=== PATIENT | female | born 1985 | race Caucasian/White ===

== ENCOUNTER 2017-05-15 19:51 | Emergency (ER) | payer OTHER ==
[~2017-05-15 19:51] MED LIST: MOT800 PO
[2017-05-15 19:59] VITALS: BP 129/86
== END 2017-05-15 20:55 | disposition home or self-care (01) ==
LOC: ED 19:51
DX: G90.59 Complex regional pain syndrome I of other specified site (principal)

== ENCOUNTER 2017-09-08 11:35 | Inpatient (IN) | payer OTHER ==
[~2017-09-08] VITALS: Ht 154.9 cm; Wt 87.6 kg
[2017-09-08 11:54] VITALS: Ht 154.9 cm; Wt 87.6 kg
[2017-09-08 13:17] LABS: UA SPECIFIC GRAVITY 1.025 (1.005-1.035); microscopic required? YES; urine erythrocyte 3+ (NEGATIVE)
[2017-09-08 14:29] LABS: PLATELET COUNT 177 x10^3mcL (130-400); RED CELL DISTRIBUTION WIDTH 13.3 % (11.5-14.5)
[2017-09-08 14:31] LABS: BASOPHIL % 0 % (0-2)
[2017-09-08 14:43] LABS: CALCIUM 9.1 mg/dL (8.5-10.1); CARBON DIOXIDE 23.6 mmol/L (21-32); CHLORIDE SERUM 106 mmol/L (98-107); CREATININE SERUM 0.6 mg/dL (0.6-1.0); GFR1 > 60 mL/min; GLUCOSE SERUM 90 mg/dL (74-106); SODIUM SERUM 139 mmol/L (136-145)
[2017-09-08 14:48] LABS: ALBUMIN 3.8 g/dL (3.4-5.0); ALKALINE PHOSPHATASE 75 U/L (46-116); ALT/SGPT 26 U/L (14-59); AST/SGOT 13 U/L (15-37); BILIRUBIN TOTAL 0.4 mg/dL (0.20-1.00); TOTAL PROTEIN, SERUM 7.7 g/dL (6.4-8.2)
[2017-09-08 15:25] LABS: CHOLESTEROL/HDL RATIO 2.9
[2017-09-08 15:25] LABS: AMPHETAMINE QUAL UR NONE DETECTED (NEG <=1000)
[2017-09-08 15:30] VITALS: BP 99/57
[2017-09-08 15:31] LABS: T3 TOTAL 0.94 ng/mL
[2017-09-08 15:33] LABS: FREE T4 1.11 ng/dL (0.76-1.46); FREE THYROXINE INDEX 2.7 ug/dL (1.4-4.5); T4(THYROXINE) 7.8 ug/dL (4.7-13.3)
[2017-09-08 18:15] VITALS: BP 102/54
[2017-09-08 20:47] VITALS: BP 102/52
[2017-09-09 05:18] VITALS: BP 101/54
[2017-09-09 07:07] LABS: CALCIUM 8.8 mg/dL (8.5-10.1); CARBON DIOXIDE 25.7 mmol/L (21-32); CHLORIDE SERUM 109 mmol/L (98-107); CREATININE SERUM 0.6 mg/dL (0.6-1.0); GFR1 > 60 mL/min; GLUCOSE SERUM 138 mg/dL (74-106); PHOSPHOROUS 3.2 mg/dL (2.5-4.9); POTASSIUM SERUM 4.9 mmol/L (3.5-5.1); SODIUM SERUM 140 mmol/L (136-145)
[2017-09-09 07:58] LABS: PLATELET COUNT 161 x10^3mcL (130-400); RED CELL DISTRIBUTION WIDTH 13.1 % (11.5-14.5)
[2017-09-09 08:00] LABS: BASOPHIL % 0 % (0-2)
[2017-09-09 09:20] VITALS: BP 107/61
[2017-09-09 13:27] VITALS: BP 115/65
[2017-09-09 16:47] VITALS: BP 108/45
[2017-09-09 23:08] VITALS: BP 99/52
[2017-09-10 06:20] LABS: PLATELET COUNT 167 x10^3mcL (130-400); RED CELL DISTRIBUTION WIDTH 13.2 % (11.5-14.5)
[2017-09-10 06:22] VITALS: BP 96/46
[2017-09-10 06:47] LABS: CALCIUM 8.7 mg/dL (8.5-10.1); CARBON DIOXIDE 22.8 mmol/L (21-32); CHLORIDE SERUM 108 mmol/L (98-107); CREATININE SERUM 0.5 mg/dL (0.6-1.0); GFR1 > 60 mL/min; GLUCOSE SERUM 144 mg/dL (74-106); PHOSPHOROUS 3.4 mg/dL (2.5-4.9); POTASSIUM SERUM 3.9 mmol/L (3.5-5.1); SODIUM SERUM 142 mmol/L (136-145)
[2017-09-10 07:48] LABS: BAND NEUTROPHIL 1 % (0-10); MONOCYTE 2 % (0-7); PLATELET MORPHOLOGY GIANT PLATELET SEEN; SEGMENTED NEUTROPHILS 83 % (37-75); rbc morphology (normal/abnorm) NORMAL (NORMAL)
[2017-09-10 09:40] VITALS: BP 101/54
[2017-09-10 13:56] VITALS: BP 95/56
[2017-09-10 17:18] VITALS: BP 106/59
[2017-09-10 20:35] VITALS: BP 95/44
[2017-09-11 05:54] VITALS: BP 103/50
[2017-09-11 06:36] LABS: BASOPHIL % 0.1 % (0-2); PLATELET COUNT 166 x10^3mcL (130-400); RED CELL DISTRIBUTION WIDTH 13.3 % (11.5-14.5)
[2017-09-11 07:06] LABS: CALCIUM 8.2 mg/dL (8.5-10.1); CARBON DIOXIDE 23.4 mmol/L (21-32); CHLORIDE SERUM 106 mmol/L (98-107); CREATININE SERUM 0.5 mg/dL (0.6-1.0); GFR1 > 60 mL/min; GLUCOSE SERUM 115 mg/dL (74-106); MAGNESIUM 2.1 mg/dL (1.8-2.4); POTASSIUM SERUM 3.9 mmol/L (3.5-5.1); SODIUM SERUM 138 mmol/L (136-145)
[2017-09-11 09:26] VITALS: BP 105/61
[2017-09-11 13:30] VITALS: BP 118/55
[2017-09-11 17:33] VITALS: BP 113/52
[2017-09-11 21:42] VITALS: BP 103/55
[2017-09-12 06:15] VITALS: BP 104/59
[2017-09-12 06:30] LABS: CALCIUM 8.3 mg/dL (8.5-10.1); CARBON DIOXIDE 25.8 mmol/L (21-32); CHLORIDE SERUM 107 mmol/L (98-107); CREATININE SERUM 0.6 mg/dL (0.6-1.0); GFR1 > 60 mL/min; GLUCOSE SERUM 127 mg/dL (74-106); MAGNESIUM 2.3 mg/dL (1.8-2.4); POTASSIUM SERUM 4.3 mmol/L (3.5-5.1); SODIUM SERUM 141 mmol/L (136-145)
[2017-09-12 06:35] LABS: BASOPHIL % 0.1 % (0-2); PLATELET COUNT 161 x10^3mcL (130-400); RED CELL DISTRIBUTION WIDTH 13.7 % (11.5-14.5)
[2017-09-12] MEDS ORDERED: ROB750 PO (09:42)
[2017-09-12 09:43] VITALS: BP 112/48
[2017-09-12] MEDS ORDERED: ULT50 PO (09:43)
[2017-09-12] MEDS ORDERED: NEU300 PO (09:44)
[2017-09-12 10:44] VITALS: BP 112/48
== END 2017-09-12 15:00 | disposition home or self-care (01) | DRG 347 ==
LOC: ED 11:35 → DU 14:24 → MU 09-09 09:13 → DU 09-10 13:57 → MU 09-11 07:38
PROVIDERS: Family Medicine; Specialist
DX: M51.16 Intervertebral disc disorders with radiculopathy, lumbar region (principal); N17.0 Acute kidney failure with tubular necrosis; N39.0 Urinary tract infection, site not specified; F41.9 Anxiety disorder, unspecified; K21.9 Gastro-esophageal reflux disease without esophagitis; R07.89 Other chest pain; M79.1 Myalgia; R31.9 Hematuria, unspecified; E83.39 Other disorders of phosphorus metabolism; D72.828 Other elevated white blood cell count; T38.0X5A Adverse effect of glucocorticoids and synthetic analogues, initial encounter; Y92.89 Other specified places as the place of occurrence of the external cause
CPT/HCPCS: 83880; 84439; 97110-GP; 97116-GP; 97530-GP; J0696; J1100; J1200; J1885; J2920; J3010; J7030; Q0162

== ENCOUNTER 2018-02-04 23:35 | Emergency (ER) | payer OTHER ==
[~2018-02-04] VITALS: Ht 154.9 cm; Wt 87.1 kg
[~2018-02-04 23:35] MED LIST changes: +NEU300 PO; +ROB750 PO; +ULT50 PO
[2018-02-04 23:48] VITALS: Ht 154.9 cm; Wt 87.1 kg
[2018-02-05 00:50] VITALS: BP 121/72
== END 2018-02-05 00:50 | disposition home or self-care (01) ==
LOC: ED 23:35
DX: R05 Cough (principal)

== ENCOUNTER 2019-02-13 03:26 | Emergency (ER) | payer OTHER ==
[~2019-02-13] VITALS: Ht 154.9 cm; Wt 88.2 kg
[2019-02-13 03:48] VITALS: Ht 154.9 cm; Wt 88.2 kg
[2019-02-13 06:44] LABS: CALCIUM 8.6 mg/dL (8.5-10.1); CARBON DIOXIDE 25.3 mmol/L (21-32); CHLORIDE SERUM 107 mmol/L (98-107); CREATININE SERUM 0.8 mg/dL (0.6-1.0); GFR1 > 60 mL/min; GLUCOSE SERUM 108 mg/dL (74-106); POTASSIUM SERUM 4.2 mmol/L (3.5-5.1); SODIUM SERUM 143 mmol/L (136-145)
[2019-02-13 06:48] LABS: ALBUMIN 3.9 g/dL (3.4-5.0); ALKALINE PHOSPHATASE 78 U/L (46-116); ALT/SGPT 22 U/L (14-59); AST/SGOT 9 U/L (15-37); BILIRUBIN TOTAL 0.37 mg/dL (0.20-1.00); TOTAL PROTEIN, SERUM 7.6 g/dL (6.4-8.2)
[2019-02-13 07:57] LABS: BASOPHIL % 0.4 % (0-2); RED CELL DISTRIBUTION WIDTH 13.8 % (11.5-14.5)
[2019-02-13 08:08] LABS: PLATELET COUNT 163 x10^3mcL (130-400)
[2019-02-13 08:14] VITALS: BP 108/69
== END 2019-02-13 08:23 | disposition home or self-care (01) ==
LOC: ED 03:26
PROVIDERS: Emergency Medicine
DX: R07.89 Other chest pain (principal); R06.02 Shortness of breath; F41.9 Anxiety disorder, unspecified
CPT/HCPCS: J1885; J7030

== ENCOUNTER 2019-03-16 06:07 | Inpatient (IN) | payer OTHER ==
[~2019-03-16] VITALS: Ht 154.9 cm; Wt 88.0 kg
[2019-03-16 06:29] VITALS: BP 118/70
[2019-03-16 10:33] VITALS: BP 108/47
[2019-03-16 17:37] VITALS: BP 110/51
[2019-03-16 17:58] VITALS: BP 94/51
[2019-03-16 22:00] VITALS: BP 107/63
[2019-03-17 05:26] VITALS: BP 98/62
[2019-03-17 06:32] LABS: BASOPHIL % 0.2 % (0-2); PLATELET COUNT 174 x10^3mcL (130-400); RED CELL DISTRIBUTION WIDTH 13.7 % (11.5-14.5)
[2019-03-17 08:33] VITALS: BP 97/42
[2019-03-17 10:42] LABS: CALCIUM 8.9 mg/dL (8.5-10.1); CARBON DIOXIDE 27.9 mmol/L (21-32); CHLORIDE SERUM 105 mmol/L (98-107); GFR1 > 60 mL/min; GLUCOSE SERUM 90 mg/dL (74-106); POTASSIUM SERUM 4.1 mmol/L (3.5-5.1); SODIUM SERUM 142 mmol/L (136-145)
[2019-03-17 16:32] VITALS: BP 102/60
[2019-03-17 20:54] VITALS: BP 107/51
[2019-03-17 22:16] VITALS: BP 107/51
[2019-03-18 05:16] VITALS: BP 92/53
[2019-03-18 08:21] VITALS: BP 120/77
[2019-03-18 09:01] VITALS: BP 120/77
== END 2019-03-18 10:03 | disposition home or self-care (01) | DRG 513 ==
LOC: DS 06:07 → OB 07:30 → EDSTATUS 07:30 → MU 07:30 → DS 07:30 → MU 09:18
PROVIDERS: ADMIT Obstetrics & Gynecology
PROC: 0UB20ZZ Excision of Bilateral Ovaries, Open Approach (ICD-10-PCS; 2019-03-16)
PROC: 0U5B0ZZ Destruction of Endometrium, Open Approach (ICD-10-PCS; principal; 2019-03-16 07:30)
DX: N80.1 Endometriosis of ovary (principal); E66.9 Obesity, unspecified; F41.9 Anxiety disorder, unspecified; N73.6 Female pelvic peritoneal adhesions (postinfective); K21.9 Gastro-esophageal reflux disease without esophagitis; Z90.49 Acquired absence of other specified parts of digestive tract; Z68.30 Body mass index [BMI] 30.0-30.9, adult
CPT/HCPCS: 97116-GP; 97530-GP; G0378; J0330; J0690; J1170; J2270; J2405; J2704; J2710; J3010; J3490; J7120